=== PATIENT | female | born 1965 | race Caucasian/White ===

== ENCOUNTER 2022-02-26 02:07 | Observation (INO) | payer OTHER, SELFPAY ==
[2022-02-26] VITALS (193 sets, daily range): BP systolic 89–135; BP diastolic 52–90; PULSE 78–103; RESP 8–30; TEMP 36.1–37.5; O2SAT 87–100
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
[2022-02-26 02:19] LABS: Abs Immature Grans 0.21 10^3/uL (0.0-0.06); Absolute Basophil Count 0.09 10^3/uL (0.0-0.2); Absolute Eosinophil Count 0.04 10^3/uL (0.0-0.7); Absolute Lymphocyte Count 1.62 10^3/uL (1.2-3.4); Absolute Monocyte Count 1.08 10^3/uL (0.1-0.8); Absolute Neutrophil Count 18.21 10^3/uL (1.2-6.7); Basophils % 0.4; Eosinophils % 0.2; HCT 42.4 % (36.0-46.0); HGB 14.3 g/dL (11.2-15.7); Lymphocytes % 7.6; MCH 31.6 pg (27.0-33.0); MCHC 33.7 % (32.0-36.0); MCV 94 fL (80-95); Monocytes % 5.1; Neutrophils % 85.7; Platelet Count 250 10^3/uL (130-400); RBC 4.52 10^6/uL (3.93-5.22); RDW 12.4 % (11.7-14.6); RDW-SD 43.2 fL; WBC 21.25 10^3/uL (4.4-10.8)
[2022-02-26 02:35] LABS: PTT Activated 19.8 sec (21.0-27.5)
[2022-02-26 02:38] LABS: ALT 54 U/L (14-59); AST 61 U/L (15-37); Albumin 4.2 g/dL (3.4-5.0); Alkaline Phosphatase 56 U/L (46-116); Anion Gap 12.8 mmol/L (3-11); BUN 11 mg/dL (7-18); Bilirubin, Total 0.3 mg/dL (0.2-1.0); CO2 26.2 mmol/L (21.0-32.0); CREATININE 0.9 mg/dL (0.55-1.02); Calcium 8.3 mg/dL (8.5-10.1); Chloride 107 mmol/L (98-107); Glucose 130 mg/dL (74-106); Magnesium 1.9 mg/dL (1.8-2.4); Potassium 3.5 mmol/L (3.5-5.1); Sodium 146 mmol/L (136-145); Total Protein 7.4 g/dL (6.4-8.2); Troponin I < 50 ng/L (<or=60)
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
[2022-02-26] MEDS: Ketamine 500 MG/10 ML VIAL 100 MG IVP (03:00)
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
[2022-02-26] MEDS: Lactated Ringers 1,000 ML 1000 ML IV (03:56)
[2022-02-26 05:00] LABS: COVID-19 PCR Negative (Negative); Source Nasal/Nares
[2022-02-26] MEDS: MORPHine 4 MG/ML SYR 3 MG IVP (05:07)
[2022-02-26] MEDS: LORazepam 2 MG/ML VIAL 0.5 MG IVP (05:07)
--- NOTE | 2022-02-26 07:00 | DI.RAD_ITS ---
Exam(s) XR PORTABLE CHEST AP EXAM: XR PORTABLE CHEST AP CLINICAL HISTORY: right pneumothorax TECHNIQUE: 2D digital imaging was performed of the chest. Images were obtained. PA and lateral v iews were obtained. COMPARISON: CR,XR XR PORTABLE CHEST AP from 02/26/2022 FINDINGS: MEDIASTINUM: Normal. HEART: Normal. PULMONARY VASCULATURE: Normal. LUNGS: Clear. PLEURAL SPACE: There is a tiny right apical pneumothorax. BONE:Within normal limits for the patient's age. The right 4th rib fracture is not well appreciated. It is best seen on the CT scan. The nondisplaced right clavicular fracture is noted. OTHER FINDINGS:The catheter device within the right upper lobe has been removed. IMPRESSION: Tiny right apical pneumothorax. DATA REPOSITORY: RADIATION DOSE DELIVERED:
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
[2022-02-26] MEDS: Ketorolac 30 MG/ML VIAL IVP ×2 (08:14→17:12)
[2022-02-26] MEDS: Acetaminophen 500 MG TAB 1000 MG PO ×2 (08:14→17:12)
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
[2022-02-26] MEDS: Nicotine 14 MG/24 HR PATCH TD (17:12)
[2022-02-26] MEDS: Cyclobenzaprine 10 MG TAB PO (17:12)
[2022-02-26] MEDS: Normal Saline Flush 10 ML SYR IVP (17:13)
[2022-02-26] MEDS: Lidocaine 5% Patch 1 PATCH TP (21:21)
--- NOTE | 2022-02-27 | DI.CT_ITS ---
Exam(s) CT LOWER EXTREMITY RT WO EXAM: CT LOWER EXTREMITY RT WO CLINICAL HISTORY: eval lateral tibial plateau frx. TECHNIQUE: Imaging Protocol: Axial computed tomography images with coronal and sagittal reformatted images were created and reviewed. COMPARISON: No exams were available for comparison FINDINGS: Bones: There multiple fracture lines seen at the lateral tibial plateau. There is only slight separ ation at the articular surface and impaction of the 1-2 millimeters. The fractures do not extend pas t the tibial spines. No medial tibial plateau fracture is seen. The distal femur and patella as wel l as proximal fibula appear intact. No cellulitic or osteomyelitic changes are identified. There is no evidence of joint space narrowing or cystic degeneration seen. No lytic or sclerotic lesions are identified. Soft Tissues: Moderate sized joint effusion. IMPRESSION: Minimally depressed comminuted fractures of the lateral tibial plateau. RADIATION DOSE DELIVERED: Total DLP Total DLP DATA REPOSITORY: All CT scans at this facility are submitted to the National Radiology Data Registry (NRDR) Dose Index Registry (DIR) with the [employer] (ACR). RADIATION OPTIMIZATION: All CT scans at this facility use at least one of these dose optimization te chniques: automated exposure control; mA and/or kV adjustment per patient size (includes targeted exa ms where dose is matched to clinical indication); or iterative reconstruction.
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
--- NOTE | 2022-02-27 | DI.RAD_ITS ---
Exam(s) XR CHEST 2V PA LATERAL EXAM: XR CHEST 2V PA LATERAL CLINICAL HISTORY: f/u Ptx TECHNIQUE: 2D digital imaging was performed. COMPARISON: CR,XR XR PORTABLE CHEST AP from 02/26/2022 FINDINGS: HEART: Normal size. Aorta: PULMONARY VASCULATURE: Normal. LUNGS: Clear. PLEURAL SPACE: Tiny right apical pneumothorax, unchanged. No pleural effusion . BONE:Nondisplaced right clavicle fracture. IMPRESSION: No change tiny right apical pneumothorax. DATA REPOSITORY: RADIATION DOSE DELIVERED:
[2022-02-27] MEDS: Acetaminophen 500 MG TAB 1000 MG PO ×3 (03:03→15:58)
[2022-02-27] MEDS: Ketorolac 30 MG/ML VIAL IVP (03:03)
[2022-02-27 03:08] VITALS: BP 115/79; PULSE 74; RESP 18; TEMP 36.8; O2SAT 95
[2022-02-27] MEDS: Normal Saline Flush 10 ML SYR IVP ×2 (05:11→11:56)
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
[2022-02-27 07:40] VITALS: BP 101/67; PULSE 74; RESP 17; TEMP 36.8; O2SAT 98
[2022-02-27] MEDS: Enoxaparin 40 MG/0.4 ML SYR SC (10:50)
[2022-02-27] MEDS: Lidocaine Patch Removal 1 EACH TP (11:19)
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
[2022-02-27 12:06] VITALS: BP 104/61; PULSE 74; RESP 17; TEMP 37; O2SAT 96
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
[2022-02-27 15:17] VITALS: BP 116/77; PULSE 81; RESP 17; TEMP 37.1; O2SAT 98
--- NOTE | 2022-02-27 15:28 | PT.INTREAT ---
Date of service: 02/27/22 Time of Service: 14:30 PT Notes Visit Reasons: Concussion Inpatient Physical Therapy Treatment Note [facility] Date: 02/27/2022 PRECAUTIONS: Activity as tolerated, fall, NWB R UE, PWB R LE, back pain SUBJECTIVE: Sary is pleasant and agreeable to participating in PT. She reports that she is tired and doesn't have much energy left. She feels like she will be able to manage around the house but is worried about getting up the stairs into the house. OBJECTIVE: PAIN: Patient c/o back, shoulder, and R LE pain with stair training BED MOBILITY/TRANSFERS: Supine-sit: I with HOB at 20 degrees Sit-supine: I with HOB at 20 degrees Sit-stand: SBA Stand-sit: SBA GAIT Assistive Device: Hemiwalker Weight bearing: NWB R UE, PWB R LE Assist: SBA Distance: Stand-pivot transfer x4 STAIRS: Up/down 2x4 using U rail and a hop-to pattern with Min A. Patient reports pain ASSESSMENT: Patient demonstrates limited activity tolerance and difficulty and instability with stair negotiation due to weight bear restrictions. Lift-assist into home would be appropriate and recommended for this patient at this time. PLAN: Patient to discharge to home later today, per provider. Recommend PT/OT follow up upon discharge to home. TREATMENT CODE/TIME: 30 minutes; 95239 x2 (14:30)
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
== END 2022-02-27 16:29 | disposition home health service (06) | DRG 200 ==
LOC: ER 04:00 → ICU 05:03 → MS 19:52 → ICU 07-07 14:45 → MS 07-07 14:46
PROVIDERS: Admitting Provider Surgery; Emergency Provider Emergency Medicine; Visit Provider Surgery
DX: S27.0XXA Traumatic pneumothorax, initial encounter (principal); S22.41XA Multiple fractures of ribs, right side, initial encounter for closed fracture; S32.038A Other fracture of third lumbar vertebra, initial encounter for closed fracture; S82.121A Displaced fracture of lateral condyle of right tibia, initial encounter for closed fracture; S42.001A Fracture of unspecified part of right clavicle, initial encounter for closed fracture; V59.88XA Occupant (driver) (passenger) of pick-up truck or van injured in other specified transport accidents, initial encounter; F12.90 Cannabis use, unspecified, uncomplicated; F10.129 Alcohol abuse with intoxication, unspecified; Y90.6 Blood alcohol level of 120-199 mg/100 ml
CPT/HCPCS: 74177; 80053; 86850; 86900; 86901; 87635; 96361; 96372; 96374; 96375; 97162; 97530; 99285; J1650; 70450; 71045; 71046; 71260; 72125; 73000; 73564; 73700; 80320; 83735; 84484; 85025; 85610; 85730; 99284; G0378; J1885; J2060; J2270; J3490

== ENCOUNTER 2022-03-08 10:16 | Outpatient (CLI) | payer OTHER, SELFPAY ==
--- NOTE | 2022-03-08 09:45 | DI.RAD_ITS ---
Exam(s) XR KNEE RT 2V AP,LAT EXAM: XR KNEE RT 2V AP,LAT CLINICAL HISTORY: right knee pain. TECHNIQUE: 2D digital imaging was performed of the right knee. Two views obtained. AP and lateral views were obtained. COMPARISON: CR XR KNEE RT 4V AP,LAT,TEDDY,PAT from 02/27/2022 FINDINGS: BONES: There has been no change in alignment of the minimally depressed lateral tibial plateau fractu re. No bony destructive lesion is seen. JOINTS: The knee is normally aligned. There is a persistent small joint effusion. SOFT TISSUE: Normal. IMPRESSION: Stable lateral tibial plateau fracture. DATA REPOSITORY: RADIATION DOSE DELIVERED:
--- NOTE | 2022-03-08 09:45 | DI.RAD_ITS ---
Exam(s) XR CLAVICLE RT EXAM: XR CLAVICLE RT CLINICAL HISTORY: right clavicle f/u TECHNIQUE: 2D digital imaging was performed of the right clavicle. Two images were obtained. AP and axial views were obtained. COMPARISON: No exams were available for comparison FINDINGS: BONES: The minimally displaced fracture of the midshaft of the right clavicle can be appreciated on t he current examination. No new fracture is identified. No bony destructive lesion is seen. JOINTS: No dislocation present. Degenerative changes are seen at the acromioclavicular joint. SOFT TISSUE: Normal IMPRESSION: Minimally displaced fracture involving the midshaft of the right clavicle. DATA REPOSITORY: RADIATION DOSE DELIVERED:
== END 2022-03-08 10:17 | disposition home or self-care (01) ==
LOC: DIORS 10:18
PROVIDERS: PCP Family Medicine; Referring Provider Family Medicine; Visit Provider Student in an Organized Health Care Education/Training Program
DX: S82.141A Displaced bicondylar fracture of right tibia, initial encounter for closed fracture (principal); S42.021A Displaced fracture of shaft of right clavicle, initial encounter for closed fracture; X58.XXXA Exposure to other specified factors, initial encounter
CPT/HCPCS: 73000; 73560

== ENCOUNTER 2022-03-27 14:28 | Outpatient (CLI) | payer OTHER, SELFPAY ==
--- NOTE | 2022-03-27 14:00 | DI.RAD_ITS ---
Exam(s) XR KNEE RT 2V AP,LAT EXAM: XR KNEE RT 2V AP,LAT INDICATION: f/u R tibial plateau frx. COMPARISON: CR XR KNEE RT 2V AP,LAT from 03/08/2022 TECHNIQUE: 2D digital imaging was performed. Two views. FINDINGS: There has been no change in the lateral tibial plateau fracture. The joint effusion has decreased in size. DATA REPOSITORY: RADIATION DOSE DELIVERED:
--- NOTE | 2022-03-27 14:00 | DI.RAD_ITS ---
Exam(s) XR CLAVICLE RT EXAM: XR CLAVICLE RT INDICATION: f/u R clavicle. COMPARISON: CR,XR XR CLAVICLE RT from 02/26/2022 CR XR CHEST 2V PA LATERAL from 02/27/2022 CR XR CLAVICLE RT from 03/08/2022 TECHNIQUE: 2D digital imaging was performed. Two views. FINDINGS: No change in alignment nondisplaced distal clavicle fracture. AC joint degenerative changes. DATA REPOSITORY: RADIATION DOSE DELIVERED:
== END 2022-03-27 14:29 | disposition home or self-care (01) ==
LOC: DIORS 14:28
PROVIDERS: PCP Family Medicine; Referring Provider Family Medicine; Visit Provider Student in an Organized Health Care Education/Training Program
DX: S42.024D Nondisplaced fracture of shaft of right clavicle, subsequent encounter for fracture with routine healing (principal); S82.141D Displaced bicondylar fracture of right tibia, subsequent encounter for closed fracture with routine healing; X58.XXXD Exposure to other specified factors, subsequent encounter
CPT/HCPCS: 73000; 73560

== ENCOUNTER 2022-04-25 13:55 | Outpatient (CLI) | payer OTHER, SELFPAY ==
--- NOTE | 2022-04-25 13:30 | DI.RAD_ITS ---
Exam(s) XR KNEE RT 2V AP,LAT EXAM: XR KNEE RT 2V AP,LAT CLINICAL HISTORY: right tibial plateau fx f/u. TECHNIQUE: 2D digital imaging was performed. COMPARISON: CR XR KNEE RT 4V AP,LAT,TEDDY,PAT from 02/27/2022 CR XR KNEE RT 2V AP,LAT from 03/08/2022 CR XR KNEE RT 2V AP,LAT from 03/27/2022 FINDINGS: Two views-AP and lateral There is continued stable appearance at healing lateral tibial plateau fracture site which again appe ars nondepressed. There is no joint space narrowing. No additional fractures evident. Joint effusi on again noted. IMPRESSION: DATA REPOSITORY: RADIATION DOSE DELIVERED:
--- NOTE | 2022-04-25 13:30 | DI.RAD_ITS ---
Exam(s) XR CLAVICLE RT EXAM: XR CLAVICLE RT CLINICAL HISTORY: right clavicle f/u. TECHNIQUE: 2D digital imaging was performed. COMPARISON: CR,XR XR CLAVICLE RT from 02/26/2022 CR XR CLAVICLE RT from 03/08/2022 CR XR CLAVICLE RT from 03/27/2022 FINDINGS: Two views: Clavicular fracture line is not seen on the present images. AC joint not distracted. Incidentally noted is thin calcific density just above the greater tuberosity on the lateral aspect o f the humeral head. May indicate calcific tendinitis. IMPRESSION: DATA REPOSITORY: RADIATION DOSE DELIVERED:
== END 2022-04-25 13:56 | disposition home or self-care (01) ==
LOC: DIORS 13:56
PROVIDERS: PCP Family Medicine; Referring Provider Family Medicine; Visit Provider Physician Assistant
DX: S82.121D Displaced fracture of lateral condyle of right tibia, subsequent encounter for closed fracture with routine healing (principal); S42.001D Fracture of unspecified part of right clavicle, subsequent encounter for fracture with routine healing; X58.XXXD Exposure to other specified factors, subsequent encounter
CPT/HCPCS: 73000; 73560

== ENCOUNTER 2022-05-30 14:36 | Outpatient (CLI) | payer OTHER, SELFPAY ==
--- NOTE | 2022-05-30 13:30 | DI.RAD_ITS ---
Exam(s) XR CLAVICLE RT EXAM: XR CLAVICLE RT CLINICAL HISTORY: RIGHT CLAVICLE F/U TECHNIQUE: 2D digital imaging was performed of the right clavicle. Two images were obtained. AP and axial views were obtained. COMPARISON: CR XR CLAVICLE RT from 03/08/2022 CR XR CLAVICLE RT from 04/25/2022 FINDINGS: BONES: Callus formation has developed about the nondisplaced mid right clavicular fracture. No new f ractures identified. No bony destructive lesion is seen. JOINTS: No dislocation present. SOFT TISSUE: Normal IMPRESSION: Healing right clavicular fracture. DATA REPOSITORY: RADIATION DOSE DELIVERED:
--- NOTE | 2022-05-30 13:30 | DI.RAD_ITS ---
Exam(s) XR KNEE RT 2V AP,LAT EXAM: XR KNEE RT 2V AP,LAT CLINICAL HISTORY: RIGHT TIBIAL PLATEAU F/U. TECHNIQUE: 2D digital imaging was performed of the right knee. Two views obtained. AP and lateral views were obtained. COMPARISON: CR XR KNEE RT 4V AP,LAT,TEDDY,PAT from 02/27/2022 CR XR KNEE RT 2V AP,LAT from 04/25/2022 FINDINGS: BONES: There is continued healing of the lateral tibial plateau fracture. No acute fracture is ident ified. No bony destructive lesion is seen. JOINTS: The knee is normally aligned. There is a small joint effusion. SOFT TISSUE: Normal. IMPRESSION: Stable healing lateral tibial plateau fracture. DATA REPOSITORY: RADIATION DOSE DELIVERED:
== END 2022-05-30 14:37 | disposition home or self-care (01) ==
LOC: DIORS 14:49
PROVIDERS: PCP Family Medicine; Referring Provider Family Medicine; Visit Provider Student in an Organized Health Care Education/Training Program
DX: S42.024D Nondisplaced fracture of shaft of right clavicle, subsequent encounter for fracture with routine healing (principal); S82.141D Displaced bicondylar fracture of right tibia, subsequent encounter for closed fracture with routine healing; X58.XXXD Exposure to other specified factors, subsequent encounter
CPT/HCPCS: 73000; 73560

== ENCOUNTER 2022-08-15 11:38 | Outpatient (CLI) | payer OTHER, SELFPAY ==
--- NOTE | 2022-08-15 11:30 | DI.RAD_ITS ---
Exam(s) XR CLAVICLE RT EXAM: XR CLAVICLE RT CLINICAL HISTORY: f/u fx TECHNIQUE: 2D digital imaging was performed of the right clavicle. Two images were obtained. AP and axial views were obtained. COMPARISON: CR XR CLAVICLE RT from 05/30/2022 FINDINGS: BONES: The fracture appears to be healed well. The callus formation is decreased compared to the chris or examination. No acute fractures identified. No bony destructive lesion is seen. JOINTS: No dislocation present. SOFT TISSUE: Normal IMPRESSION: No acute abnormality. DATA REPOSITORY: RADIATION DOSE DELIVERED:
--- NOTE | 2022-08-15 11:30 | DI.RAD_ITS ---
Exam(s) XR KNEE RT 2V AP,LAT EXAM: XR KNEE RT 2V AP,LAT CLINICAL HISTORY: f/u fx. TECHNIQUE: 2D digital imaging was performed of the right knee. Two views obtained. AP and lateral views were obtained. COMPARISON: CR XR KNEE RT 2V AP,LAT from 03/27/2022 CR XR KNEE RT 2V AP,LAT from 05/30/2022 FINDINGS: BONES: No acute fracture is present. There is continued healing of the lateral tibial plateau fractu re. There is no change in alignment of the fracture deformity. No bony destructive lesion is seen. JOINTS: The knee is normally aligned. There is a small joint effusion. SOFT TISSUE: Normal. IMPRESSION: No acute abnormality. There has been continued healing of the lateral tibial plateau fracture. DATA REPOSITORY: RADIATION DOSE DELIVERED:
== END 2022-08-15 11:39 | disposition home or self-care (01) ==
LOC: DIORS 11:38
PROVIDERS: PCP Registered Nurse Infection Control; Referring Provider Registered Nurse Infection Control; Visit Provider Student in an Organized Health Care Education/Training Program
DX: M25.461 Effusion, right knee; S82.141D Displaced bicondylar fracture of right tibia, subsequent encounter for closed fracture with routine healing; S42.024D Nondisplaced fracture of shaft of right clavicle, subsequent encounter for fracture with routine healing; M79.89 Other specified soft tissue disorders; X58.XXXD Exposure to other specified factors, subsequent encounter
CPT/HCPCS: 73000; 73560

== ENCOUNTER 2022-09-08 00:30 | Outpatient (CLI) | payer OTHER, SELFPAY ==
--- NOTE | 2022-09-08 07:15 | DI.MRI_ITS ---
Exam(s) MR LOWER JOINT RT WO EXAM: MR LOWER JOINT RT WO CLINICAL HISTORY: ? MENISCAL TEAR,[id number],injury. TECHNIQUE: Multiplanar multisequence MRI was performed. COMPARISON: CR XR KNEE RT 2V AP,LAT from 05/30/2022 CR XR KNEE RT 2V AP,LAT from 08/15/2022 FINDINGS: BONES: There is no acute fracture or contusion pattern. A minimally depressed lateral tibial plateau fracture is again noted. JOINTS: A small joint effusion is present. Articular cartilage: Patellofemoral joint: Articular cartilage is unremarkable. Medial femoral tibial joint: Articular cartilage is unremarkable. Lateral femoral tibial joint: Minimal cartilage defect at lateral tibial plateau fracture.. TENDONS: Extensor mechanism: Unremarkable. Medial retinaculum: Unremarkable. Lateral retinaculum: Unremarkable. Popliteus: Unremarkable. MUSCLES: Unremarkable. MENISCI: The medial meniscus is unremarkable. The lateral meniscus is unremarkable. SOFT TISSUES: Unremarkable. LIGAMENTS: Anterior Cruciate: Unremarkable. Posterior Cruciate: Unremarkable. Medial Collateral:Unremarkable. Lateral Collateral: Unremarkable. OTHER: IMPRESSION: Minimally depressed lateral tibial plateau fracture. Minimal cartilage disruption. No large cartila ge defect. No meniscal or ligament tear seen. DATA REPOSITORY:
== END 2022-09-08 00:50 ==
PROVIDERS: PCP Registered Nurse Infection Control; Visit Provider Student in an Organized Health Care Education/Training Program
DX: S83.281A Other tear of lateral meniscus, current injury, right knee, initial encounter (principal)
CPT/HCPCS: 73721

== ENCOUNTER 2023-03-14 11:53 | Outpatient (CLI) | payer OTHER, SELFPAY ==
--- NOTE | 2023-03-14 11:00 | DI.RAD_ITS ---
Exam(s) XR CLAVICLE RT EXAM: XR CLAVICLE RT CLINICAL HISTORY: F/U FRACTURE TECHNIQUE: 2D digital imaging was performed. COMPARISON: CR XR CLAVICLE RT from 04/25/2022 CR XR CLAVICLE RT from 05/30/2022 CR XR CLAVICLE RT from 08/15/2022 FINDINGS: BONES: Old clavicle fracture shows continued healing.. No acute fracture is present. No bony destruc tive lesion is seen. JOINTS: No dislocation present. AC joint shows mild spurring. Mild spurring at glenoid. SOFT TISSUE: Normal IMPRESSION: Continued healing of clavicle fracture. DATA REPOSITORY: RADIATION DOSE DELIVERED:
--- NOTE | 2023-03-14 11:00 | DI.RAD_ITS ---
Exam(s) XR KNEE RT 2V AP,LAT EXAM: XR KNEE RT 2V AP,LAT CLINICAL HISTORY: F/U FRACTURE. TECHNIQUE: 2D digital imaging was performed. Two views. COMPARISON: CR XR KNEE RT 2V AP,LAT from 05/30/2022 CR XR KNEE RT 2V AP,LAT from 08/15/2022 MR MR LOWER JOINT RT WO from 09/08/2022 FINDINGS: BONES: There has been no change in the mild depression of the lateral tibial plateau. No acute fract ure is present. No bony destructive lesion is seen. JOINTS: The knee is normally aligned. No joint effusion is seen. The joint spaces are maintained. SOFT TISSUE: Normal. IMPRESSION: Stable appearance of lateral tibial plateau. No new abnormalities. DATA REPOSITORY: RADIATION DOSE DELIVERED:
== END 2023-03-14 11:54 | disposition home or self-care (01) ==
LOC: DIORS 11:53
PROVIDERS: PCP Registered Nurse Infection Control; Visit Provider Student in an Organized Health Care Education/Training Program
DX: S42.021D Displaced fracture of shaft of right clavicle, subsequent encounter for fracture with routine healing (principal); S82.121D Displaced fracture of lateral condyle of right tibia, subsequent encounter for closed fracture with routine healing; X58.XXXD Exposure to other specified factors, subsequent encounter
CPT/HCPCS: 73000; 73560